=== PATIENT | male | born 1975 | race Caucasian/White ===

== ENCOUNTER 2020-05-09 14:28 | Outpatient (CLI) | payer OTHER ==
--- NOTE | 2020-05-09 15:56 | MRI ---
MR of the right shoulder without contrast INDICATION: Right shoulder pain. Right shoulder pain for many months TECHNIQUE: Sagittal T1, axial and coronal PD fat sat, sagittal and coronal T2 fat sat images were obt ained of the right shoulder. COMPARISON: None. FINDINGS: Motion artifact limits image detail. Rotator cuff: There is a low-grade articular surface tear, involving one third of the tendon thicknes s, of the mid infraspinatus at the footprint, best seen on image 25 of series 4 and image 8 of series 9 with intratendinous delamination extending up the mid infraspinatus tendon to the level of t he musculotendinous junction. There is mild infraspinatus and supraspinatus tendinosis. Glenohumeral joint: Articular cartilage is intact. Glenoid labrum: Intact Biceps tendon and biceps anchor: Intact and located. Acromion clavicular joint: There is moderate AC joint osteoarthrosis. Subacromial subdeltoid space: No appreciable fluid. Axillary region: No lymphadenopathy. Surrounding shoulder musculature: Normal. No evidence of atrophy or strain. IMPRESSION: 1. Low-grade articular surface tear involving the mid infraspinatus at the footprint with a small del aminating component extending up the mid infraspinatus tendon to the musculotendinous junction. 2. Mild infraspinatus and supraspinatus tendinosis. 3. Moderate AC joint osteoarthrosis.
== END 2020-05-09 14:29 | disposition home or self-care (01) ==
LOC: SCSMRI 14:28
PROVIDERS: ATTEND Family Medicine
DX: S49.91XD Unspecified injury of right shoulder and upper arm, subsequent encounter (principal); M24.811 Other specific joint derangements of right shoulder, not elsewhere classified; M19.011 Primary osteoarthritis, right shoulder; M75.81 Other shoulder lesions, right shoulder

== ENCOUNTER 2023-02-08 22:40 | Observation (INO) | payer MEDICARE, OTHER, SELFPAY ==
[2023-02-09 01:54] VITALS: BMI 25.3
[2023-02-09] MEDS ORDERED: Acetaminophen 325 MG TAB PO PRN (02:47)
[2023-02-09] MEDS ORDERED: Ondansetron PF 4 MG/2 ML Vial IVP PRN (02:47)
[2023-02-09] MEDS: HYDROcodone/Acetaminophen 7.5/325 mg Tablet PO PRN ×5 (03:05→22:25)
[2023-02-09] MEDS: Doxycycline 100 MG CAP PO SCH ×2 (05:54→17:01)
[2023-02-09] MEDS ORDERED: Morphine 4 MG/ML VIAL SLOW IVP SCH (06:00)
[2023-02-09 06:15] LABS: #Basophils 0.1 thou/uL (0.0-0.2); #Eosinphils 0.4 thou/uL (0.0-0.7); #Monocytes 0.8 thou/uL (0.11-0.59); #Neutrophils 3.8 thou/uL (1.40-6.50); %Basophils 1.3 % (0.0-1.0); %Eosinophils 4.7 % (0.0-10.0); %Lymphocytes 34.5 % (21.0-51.0); %Monocytes 9.7 % (0.0-10.0); %Neutrophils 49.5 % (42.0-75.0); Hemoglobin 13.6 g/dL (14.0-18.0); Mean Corpuscular HGB CONC 32.5 g/dL (32.0-36.0); Mean Corpuscular Hemoglobin 30.6 pg (27.0-31.0); Mean Corpuscular Volume 94.4 fl (78.0-98.0); Mean Platelet Volume 9.2 fL (7.4-10.4); Platelet Count 254 10x3/uL (130-400); RBC Distribution Width 13.9 % (11.5-14.5); Red Blood Cell (RBC) Count 4.44 mill/uL (4.70-6.10); White Blood Cell (WBC) Count 7.7 10x3/uL (4.8-10.8)
[2023-02-09 06:23] LABS: Hemoglobin A1c 4.6 % (4.0-6.0)
[2023-02-09 06:35] LABS: Anion Gap 8 mmol/L (10-20); BUN (Urea Nitrogen) 9 mg/dL (8.9-20.6); Calc. Creatinine Clearance 122 mL/min (70-130); Calcium 8.6 mg/dL (7.8-10.44); Carbon Dioxide 30 mmol/L (22-29); Chloride 103 mmol/L (98-107); Estimated GFR 107; Glucose 93 mg/dL (70-105); Potassium 3.5 mmol/L (3.5-5.1); Sodium 137 mmol/L (136-145)
[2023-02-09 06:39] LABS: ALT (SGPT) Less than 7 U/L (8-55); AST (SGOT) 9 U/L (5-34); Albumin 3.2 g/dL (3.5-5.0); Alkaline Phosphatase 127 U/L (40-110); Bilirubin, Direct 0.3 mg/dL (0.1-0.3); Bilirubin, Total 0.5 mg/dL (0.2-1.2); Protein, Total 5.9 g/dL (6.0-8.3)
[2023-02-09] MEDS: Aspirin 81 mg Enteric Coated Tablet PO SCH (08:30)
[2023-02-10] MEDS: HYDROcodone/Acetaminophen 7.5/325 mg Tablet PO PRN ×3 (02:28→10:11)
[2023-02-10] MEDS ORDERED: Sodium Chloride 0.9% 500 ML IV SCH (03:00)
[2023-02-10 03:27] VITALS: TEMP 97
[2023-02-10] MEDS: Doxycycline 100 MG CAP PO SCH (04:02)
[2023-02-10 04:48] LABS: #Basophils 0.1 thou/uL (0.0-0.2); #Eosinphils 0.4 thou/uL (0.0-0.7); #Monocytes 0.8 thou/uL (0.11-0.59); #Neutrophils 4.2 thou/uL (1.40-6.50); %Basophils 1.3 % (0.0-1.0); %Eosinophils 4.9 % (0.0-10.0); %Lymphocytes 29.6 % (21.0-51.0); %Monocytes 9.8 % (0.0-10.0); %Neutrophils 54.1 % (42.0-75.0); Hemoglobin 14.3 g/dL (14.0-18.0); Mean Corpuscular HGB CONC 33.6 g/dL (32.0-36.0); Mean Corpuscular Hemoglobin 31.1 pg (27.0-31.0); Mean Corpuscular Volume 92.6 fl (78.0-98.0); Mean Platelet Volume 9.2 fL (7.4-10.4); Platelet Count 246 10x3/uL (130-400); RBC Distribution Width 13.7 % (11.5-14.5); White Blood Cell (WBC) Count 7.7 10x3/uL (4.8-10.8)
[2023-02-10 05:13] LABS: Anion Gap 10 mmol/L (10-20); BUN (Urea Nitrogen) 11 mg/dL (8.9-20.6); Calc. Creatinine Clearance 137 mL/min (70-130); Calcium 8.7 mg/dL (7.8-10.44); Carbon Dioxide 28 mmol/L (22-29); Chloride 104 mmol/L (98-107); Estimated GFR 111; Glucose 102 mg/dL (70-105); Sodium 138 mmol/L (136-145)
[2023-02-10] MEDS: Aspirin 81 mg Enteric Coated Tablet PO SCH (08:26)
[2023-02-10 19:57] VITALS: BP 111/69
== END 2023-02-10 12:09 | disposition home or self-care (01) ==
LOC: NEURO 22:40
PROVIDERS: ADMIT Internal Medicine; ATTEND Family Medicine
DX: R20.2 Paresthesia of skin (principal); K12.2 Cellulitis and abscess of mouth; R53.1 Weakness; Z88.8 Allergy status to other drugs, medicaments and biological substances; Z79.82 Long term (current) use of aspirin
CPT/HCPCS: 36415; 70551; 80048; 80076; 82607; 83036; 83735; 85025; 87070; 87077; 87186; 87205; 93005; 93010; 93306; 93880; 96372; 96374; G0378; J1650; J2270